=== PATIENT | male | born 1995 | race African-American/Black ===

== ENCOUNTER 2022-04-22 13:09 | Outpatient (CLI) | payer OTHER ==
[2022-04-22 13:48] VITALS: BP 118/78
--- NOTE | 2022-04-22 13:48 | SLEEP CARE CONSULTATION ---
Information from patient questionnaire entered by Blas Bailey. I have reviewed and concur with the information entered by Blas Bailey. This document represents the service I personally performed and the decisions made by me, Kathleen Saunders ARNP. History of Present Illness Service Date and Time: 04/22/2022 1309 Reason for Visit: New patient Chief Complaint: reports: Unrefreshed sleep, Snoring, Other (GRINDING TEETH) Date of Onset: SNORING 2 YEARS Usual bedtime: 1030 Time it takes to fall asleep: 30 MINUTES Snores at night: Yes Observed to quit breathing while asleep: No Sleeps alone due to snoring: No Number of times waking at night: 2 Reasons for waking at night: reports: Snoring, Other (DRINK WATER). denies: Choking, Gasping for air Toss, Turn, or Twitch while sleeping: Yes Recalls having dreams: No Usually gets out of bed at: 0445; weekends [id number] Feels refreshed in the morning: No Morning headache: No Sleepy or fatigued during the day: No Ever fallen asleep while driving: No Takes day naps: Yes (3-4 days a week, for 2 hrs) Dreams during day naps: No Prior sleep studies: No Additional HPI information: I had the pleasure of seeing RAMANDEEP GONSALVES today regarding the possibility of him having a sleep disorder. His current complaints are snoring and grinding teeth. He has been having TMJ issues and his surgeon wanted him to be evaluated because he is still having pain and may be grinding teeth. His dentist told him he did not have signs of bruxism. He has snored for a long time but denies any observed pauses in breathing. He does not feel refreshed in the morning from sleep but states he is not sleepy/fatigued during the day. He does take naps at least 3-4 days a week for 2 hours. His mother has sleep apnea and is on a machine. - Parasomnia Symptoms Ever been unable to move upon waking from sleep: No Walks in sleep: No Talks in sleep: No Ever acted out dreams in sleep: No Ever felt weak in the knees when startled or emotional: No Bothered by creepy, crawly, restless sensations in legs: Yes (random times during the day, not every day) Problems with memory or concentration: No Subjective Initial [place] Sleepiness Scale score: 7 (04/06/22) Past Medical History Past Medical History: reports: Other (TMJ, surgery December 2021) Social History The patient's occupation is a AM. Patient is Single and lives in . Have you smoked in the past 12 months: Yes (VAPE) Years of smokin Alcohol use: Yes Alcohol amount and frequency: 2-3 BEERS, WEEKENDS Caffeine use: No Family History Family history of sleep disordered breathing: Yes Family Hx Sleep Apnea: Mother: Snoring, Sleep apnea - Treated, Grandparent: Snoring Allergies and Home Medications Known drug allergies: No Drug allergies reviewed: Yes (NKDA) Home medication list reviewed: Yes Allergy and home medication list: Medications: Amitriptyline, prn Review of Systems Weight gain over past 5 years: 30 Cardiovascular: denies: high blood pressure Gastrointestinal: denies: heartburn Urinary: reports: frequency Neurological: denies: headaches, head trauma Psychiatric: denies: anxiety, depression Ear/Nose/Throat: reports: wisdom teeth removed. denies: tonsillectomy Musculoskeletal: reports: joint pain, neck pain, back pain Physical Exam Vital signs obtained and entered by: JHOANA PRATT Blood Pressure: 118/78 (LEFT ARM ) Cuff size: regular Heart Rate: 72 O2 Saturation: 98 Height: 5 ft 8 in Weight: 208 lb Body Mass Index: 31.6 BMI Classification: Obese Neck circumference: 17 (INCHES) Mouth and throat: narrow oropharynx Soft palate: long Hard palate: normal Uvula: normal Uvula visualization: 25% Mallampati Class III Tongue: normal in size Tonsils: 1+ Neck: normal w/o lymphadenopathy or thyromegaly Heart: regular rate and rhythm Lungs: clear bilaterally Impression and Plan 1. Suspected Obstructive Sleep Apnea-Hypopnea Syndrome, as suggested by a history of loud and irregular snoring, unrefreshed sleep and possible bruxism. Narrow oropharynx and obesity are common predisposing factors for obstructive sleep apnea-hypopnea syndrome. I recommend proceeding to polysomnography to confirm the diagnosis and to assess severity. If the patient has significant sleep disordered breathing, a manual CPAP titration study will also be performed to find the optimal treatment pressure. I informed the patient of what the sleep studies involve and after some discussion, obtained agreement to proceed. The pathophysiology of obstructive sleep apnea-hypopnea syndrome was discussed with the patient and health risks of cardiovascular and cerebrovascular disease if not treated. Risks of drowsy driving discussed in detail and patient advised to avoid long distance driving and to tack puller at the first sign of drowsiness. Patient agreed to plan. * Schedule polysomnography * Avoid long distance driving or driving when feeling sleepy. * Avoid alcohol, sedative and muscle relaxant around bedtime. * Attempt to lose weight. * Review instructions provided by trained office staff on how to prepare for the sleep study. * Return for follow-up after sleep study completed. Counseling Topics: Weight loss health impact Visit Type: In Office Time Spent with Patient (minutes): 25 Provider Statement: I spent 100% of the Face to Face Visit with the patient with greater than 50% spent counseling the patient and coordination of care.
== END 2022-04-22 13:10 | disposition home or self-care (01) ==
LOC: SC 13:09
PROVIDERS: ATTEND Nurse Practitioner Family
DX: R06.83 Snoring (principal); G47.63 Sleep related bruxism; G47.8 Other sleep disorders; E66.9 Obesity, unspecified; Z68.31 Body mass index [BMI] 31.0-31.9, adult; F17.290 Nicotine dependence, other tobacco product, uncomplicated
CPT/HCPCS: 99202; 99212

== ENCOUNTER 2022-05-10 14:14 | Outpatient (CLI) | payer OTHER | END 2022-05-10 14:15 | disposition home or self-care (01) | LOC: SC 14:14 | PROVIDERS: ATTEND Nurse Practitioner Family | DX: G47.33 Obstructive sleep apnea (adult) (pediatric) (principal); R09.02 Hypoxemia | CPT/HCPCS: 95806 ==

== ENCOUNTER 2022-06-01 12:27 | Outpatient (CLI) | payer OTHER ==
--- NOTE | 2022-06-01 13:19 | SLEEP CARE CONSULTATION ---
Information from patient questionnaire entered by Blela Rosa. I have reviewed and concur with the information entered by Bella Rosa. This document represents the service I personally performed and the decisions made by , Kathleen Saunders ARNP. History of Present Illness Service Date and Time: 06/01/2022 1227 Initial [place] Sleepiness Scale score: 7 (04/06/22) Current [place] Sleepiness Scale score: 5 (06/01/2022) Additional HPI information: RAMANDEEP GONSALVES returns for follow up and results of the recently performed home sleep study. I explained the pathophysiology behind obstructive sleep apnea. We then spent quite a bit of time discussing different treatment options. For mild obstructive sleep apnea, surgery and oral appliance are alternatives to nasal CPAP therapy but in moderate or severe cases, nasal CPAP is the most effective and reliable treatment. Because apnea is primarily in supine position, then positional management therapy could be effective. Methods discussed such as positioning with pillows to prevent supine sleep. I reviewed the impact of weight changes on sleep apnea and strongly recommended losing weight. Patient counseled not drink alcohol less than 4 hours before bedtime as it can increase snoring and apnea. Patient was cautioned about risks of drowsy driving until sleepiness symptoms resolve. Patient denies drowsy driving. Sleep Study - Results Type of Sleep Study: Home sleep study (COMPLETED 05/10/2022) Prior sleep studies: No Polysomnography/Home Sleep Study results: Physician Impression: The quality of the study is good. The length of the study is adequate (> 240 minutes). Please also see the tabulated and graphic data. 1. Obstructive Sleep Apnea-Hypopnea (ICD-10 G47.33), mild, with an AHI of 12.8/hr and gonzalo SaO2 of 85%. During the study, the patient had 99 apneas (98 obstructive, 0 central, 1 mixed) and 24 hypopneas. The patient did not sleep supine during this study (supine AHI was and non-supine, 12.81). 2. Hypoxemia (ICD-10 R09.02), mild, with the lowest oxygen saturation of 85 % and 1.8 minutes with SaO2 under 90%. Baseline oxygen saturation was normal (Average oxygen saturation was 95%). Allergies and Home Medications Drug allergies reviewed: Yes (NKDA) Home medication list reviewed: Yes (no changes) Review of Systems Review of systems same as previous: Yes (no changes) Physical Exam Vital signs obtained and entered by: BELLA Velasquez MA Blood Pressure: 112/64 (left arm) Cuff size: regular Heart Rate: 77 O2 Saturation: 95 Height: 5 ft 8 in Weight: 214 lb 3.2 oz Body Mass Index: 32.5 BMI Classification: Obese Impression and Plan 1. Obstructive Sleep Apnea-Hypopnea Syndrome, mild, with lowest oxygen saturation of 85%. Obviously this is the cause of the patients symptoms of unrefreshed sleep, and excessive daytime sleepiness. The patient chose an oral appliance to treat their apnea. A follow up will be made to see if appliance has reduced symptoms. If so, another polysomnography will be ordered with use of the oral appliance to check efficacy in reducing apnea. He requested a letter about using this device postop corneal surgery. I was able to accommodate this request. We will see him back in office after he has been using his oral device. * Oral appliance * Letter as requested * Attempt to lose weight. * Avoid alcohol consumption near bedtime. * Return one month after using oral appliance. I will assess response to therapy and compliance at that time. Counseling Topics: Weight loss health impact Visit Type: In Office Time Spent with Patient (minutes): 20 Provider Statement: I spent 100% of the Face to Face Visit with the patient with greater than 50% spent counseling the patient and coordination of care.
[2022-06-01 13:20] VITALS: BP 112/64
== END 2022-06-01 12:28 | disposition home or self-care (01) ==
LOC: SC 12:27
PROVIDERS: ATTEND Nurse Practitioner Family
DX: G47.33 Obstructive sleep apnea (adult) (pediatric) (principal); E66.9 Obesity, unspecified; Z68.32 Body mass index [BMI] 32.0-32.9, adult
CPT/HCPCS: 99212; 99213

== ENCOUNTER 2022-08-03 12:33 | Emergency (ER) | payer OTHER ==
[2022-08-03 14:06] LABS: BASOPHILS # (AUTO) 0.1 10^3/uL (0.0-0.1); BASOPHILS % (AUTO) 0.6 %; EOSINOPHILS # (AUTO) 0.1 10^3/uL (0.0-0.7); HCT - HEMATOCRIT 49.5 % (42.0-52.0); HGB - HEMOGLOBIN 16.5 g/dL (14.0-18.0); LYMPHOCYTES # (AUTO) 1.7 10^3/uL (1.5-3.5); LYMPHOCYTES % (AUTO) 21.7 %; MEAN CORPUSCULAR HEMOGLOBIN 27.5 pg (27.0-31.0); MEAN CORPUSCULAR HGB CONC 33.3 g/dL (32.0-36.0); MEAN CORPUSCULAR VOLUME 82.4 fL (80.0-94.0); MEAN PLATELET VOLUME 9.5 fL (7.4-11.4); MONOCYTES # (AUTO) 0.4 10^3/uL (0.0-1.0); MONOCYTES % (AUTO) 5.1 %; NEUTROPHILS # (AUTO) 5.5 10^3/uL (1.5-6.6); NEUTROPHILS % (AUTO) 71.5 %; PLT - PLATELET COUNT 382 10^3/uL (130-450); RED BLOOD COUNT 6.01 10^6/uL (4.70-6.10); RED CELL DISTRIBUTION WIDTH 12.7 % (12.0-15.0); WHITE BLOOD COUNT 7.7 x10^3/uL (4.8-10.8)
[2022-08-03 14:18] LABS: ALBUMIN 4.8 g/dL (3.2-5.5); ALBUMIN/GLOBULIN RATIO 1.4 (1.0-2.2); BILIRUBIN,TOTAL 0.7 mg/dL (0.2-1.0); CALCIUM 9.5 mg/dL (8.5-10.3); POTASSIUM 3.8 mmol/L (3.5-5.0); TOTAL PROTEIN 8.2 g/dL (6.7-8.2)
[2022-08-03] MEDS ORDERED: HYDROmorphone 1 MG/ML CARPUJECT IVP STA (17:18)
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
[2022-08-03] MEDS ORDERED: iohexoL-300 100 ML VIAL ONE (17:21)
[2022-08-03] MEDS ORDERED: iohexoL-300 100 ML VIAL IVP ONE (17:54)
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
[2022-08-03 18:33] VITALS: BP 124/97
== END 2022-08-03 18:33 | disposition home or self-care (01) ==
LOC: ED 12:33
DX: S30.1XXA Contusion of abdominal wall, initial encounter (principal); V03.90XA Pedestrian on foot injured in collision with car, pick-up truck or van, unspecified whether traffic or nontraffic accident, initial encounter; Y93.01 Activity, walking, marching and hiking; Y92.138 Other place on military base as the place of occurrence of the external cause
CPT/HCPCS: 36415; 74177; 80053; 83690; 85025; 96374; 99282; 99284; J1170; Q9967

== ENCOUNTER 2023-07-21 06:37 | Day surgery (SDC) | payer OTHER ==
[2023-07-21] MEDS ORDERED: PROPOFOL 200 MG/20 ML VIAL IVP ONE ×2 (06:54)
[2023-07-21] MEDS ORDERED: ROCURONIUM 50 MG/5 ML VIAL ONE (06:54)
[2023-07-21] MEDS ORDERED: MIDAZOLAM 2 MG/2 ML VIAL ONE (06:55)
[2023-07-21] MEDS ORDERED: fentaNYL 100 MCG/2 ML VIAL ONE (06:55)
[2023-07-21] MEDS ORDERED: ceFAZolin 2 GM VIAL ONE (07:21)
--- NOTE | 2023-07-21 07:32 | ANESTHESIA ---
Pre-Anesthesia VS, & Labs - Diagnosis Jaw pain - Procedure Coindylotomy of Left TMJ Vital Signs: Temp Pulse Resp BP Pulse Ox O2 Flow Rate 36.5 C 88 14 131/86 H 95 07/21/23 07:02 07/21/23 07:02 07/21/23 07:02 07/21/23 07:02 07/21/23 07:02 Height: 5 ft 7 in Weight (kg): 95.3 kg Body Mass Index: 32.9 BMI Classification: Obese - NPO Last Fluid Intake: h20, 0400 Home Medications and Allergies Amitriptyline HCl 50 mg PO DAILY 06/09/23 Fluticasone [Flonase] 1 sprays AMELIA DAILY PRN 06/09/23 Meloxicam 15 mg PO DAILY 06/09/23 Allergies/Adverse Reactions: Allergies Allergy/AdvReac Type Severity Reaction Status Date / Time No Known Drug Allergies Allergy Verified 07/21/23 07:01 Anes History & Medical History - Anesthetic History Anesthesia Complications: reports: No previous complications Family history of Anesthesia Complications: Denies Family history of Malignant Hyperthermia: Denies - Medical History Cardiovascular: reports: None Pulmonary: reports: Sleep apnea, Other (Vapes) Gastrointestinal: reports: None Urinary: reports: None Neuro: reports: None Musculoskeletal: reports: None Endocrine/Autoimmune: reports: None Blood Disorders: reports: None Skin: reports: None Psychosocial: reports: No issues indicated History of Cancer?: No Exam General: Alert Dental: TMJ (limited mouth opening d/t pain) Mouth Openin Fingerbreadth Neck Mobility: Normal Mallampati classification: III Thyromental Distance: 4-6 cm Respiratory: Lungs clear, Normal breath sounds, No respiratory distress, No accessory muscle use Cardiovascular: Regular rate Mental/Cognitive Status: Alert/Oriented X3 Cognitive Status: Within normal limits Plan Anesthesia Type: General (nasal intubation) Consent for Procedure(s) Verified and Reviewed: Yes Code Status: Attempt Resuscitation ASA classification: 2-Mild systemic disease (vapes) Is this case an emergency?: No
[2023-07-21] MEDS ORDERED: BACITRACIN ZINC OINT 1 PACKET TOP ONE (07:35)
[2023-07-21] MEDS ORDERED: LACTATED RINGERS 1,000 ML IV ONE ×3 (07:35→10:41)
[2023-07-21] MEDS ORDERED: NALOXONE 0.4 MG/ML VIAL IVP PRN (07:36)
[2023-07-21] MEDS ORDERED: METOCLOPRAMIDE 10 MG/2 ML VIAL IVP PRN (07:36)
[2023-07-21] MEDS ORDERED: HYDROmorphone 0.5 MG/0.5 ML SYRINGE IVP PRN (07:36)
[2023-07-21] MEDS ORDERED: ePHEDrine 50 MG/ML VIAL IVP PRN (07:36)
[2023-07-21] MEDS ORDERED: ATROPINE ABBOJECT 1 MG/10 ML SYRINGE IVP PRN (07:36)
[2023-07-21] MEDS ORDERED: MORPHINE 2 MG/ML CARPUJECT IVP PRN ×2 (07:36→11:02)
[2023-07-21] MEDS ORDERED: fentaNYL 100 MCG/2 ML VIAL IVP PRN (07:36)
[2023-07-21] MEDS ORDERED: ONDANSETRON 4 MG/2 ML VIAL IVP PRN ×2 (07:36→11:02)
[2023-07-21] MEDS ORDERED: ACETAMINOPHEN 1,000 MG/100 ML 1,000 MG/100 ML BAG IV ONE (07:54)
[2023-07-21] MEDS ORDERED: CHLORHEXIDINE GLUCONATE 15 ML UDC PO ONE (07:57)
[2023-07-21] MEDS ORDERED: LIDOCAINE 1%-EPI 1:100000 20 ML MDV ONE ×2 (07:57→09:14)
[2023-07-21] MEDS ORDERED: LACTATED RINGERS 1,000 ML IV SCH (08:00)
[2023-07-21] MEDS ORDERED: DEXMEDETOMIDINE 200 MCG/2 ML VIAL ONE (08:54)
[2023-07-21] MEDS ORDERED: DEXAMETHASONE 4 MG/ML VIAL ONE (08:54)
[2023-07-21] MEDS ORDERED: KETOROLAC 30 MG/ML VIAL ONE (08:54)
[2023-07-21] MEDS ORDERED: ONDANSETRON 4 MG/2 ML VIAL ONE (08:54)
[2023-07-21] MEDS ORDERED: LIDOCAINE 1%-EPI 1:100000 20 ML MDV SUBQ ONE ×2 (09:13)
[2023-07-21] MEDS ORDERED: BUPIVACAINE 0.5%-EPI 1:200000 PF 30 ML VIAL ONE (09:25)
[2023-07-21] MEDS ORDERED: SUGAMMADEX 200 MG/2 ML VIAL IVP ONE (09:29)
[2023-07-21] MEDS ORDERED: BUPIVACAINE 0.5%-EPI 1:200000 PF 30 ML VIAL SUBQ ONE ×2 (10:00)
--- NOTE | 2023-07-21 11:06 | OPERATIVE REPORT ---
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 Conservative therapy has failed to resolve his jaw pain. It was decided that a modified condylotomy of the left temporo mandibular joint was indicated. The risks, benefits, and alternatives of this plan were discussed with the patient including pain, swelling, bleeding, infection, nonunion, pseudoarthrosis, facial deformity, malocclusion, need for further surgeries or braces, damage to the teeth, permanent nerve injury with permanent paresthesia and/ Or anesthesia, and failure to resolve his jaw pain And worsening of the temporomandibular joint condition. Adequate time was given to answer all questions and informed consent was obtained. Findings: The patient was brought to the main operating room and placed in supine position on the operating table. General anesthesia was induced by the anesthesia team and the airway was secured with a 7.5 nasal ray tube via the right naris. The tube was secured to the nasal septum with a 2-0 silk suture. The patient pressure points were padded checked. The patient was prepped and draped in the standard sterile fashion for an intraoral surgical procedure. The eyes were protected with Tegaderms. A shoulder roll was placed. 1 Ray-Nazia was used as a throat pack. Chlorhexidine and a tooth brush were used to clean the teeth and the inside of the mouth. Local anesthesia was achieved with 1% lidocaine with 1-200,000 epinephrine x 8 cc. the Omni max tray was used to place an arch bar on the maxilla which was attached with two 7 mm screws and two 9 mm screws and another arch bar on the mandible which was attached with two 9 mm screws. A 45 degree distobuccal incision, a hockey-stick incision was made at site #17 with the distobuccal extension extending superiorly and up the ramus. The ramus was palpated to guide the direction of the incision. The incision was made with a 15 blade near tooth #18 and it was made with a Bovie elsewhere. Incision was made down to bone. Subperiosteal dissection was performed. The entire lateral aspect of the ascending ramus and angle of the mandible was exposed. Exposure was carried up to the condylar neck and the condylar notch. A series of freer elevators including a J. [place] were used to strip the masseter muscle off the posterior aspect of the mandible. Retractors were placed in the condylar notch. An oscillating saw was used with copious amounts of irrigation to make the osteotomy. The osteotomy was very easily completed. The proximal segment was freed and moved laterally. Additional muscle was removed from the proximal proximal segment which was medial pterygoid muscle. One third of the muscle fibers on the proximal segment were allowed to remain in place to hold the segment up. The entire surgical area was irrigated copiously. The wound was closed with 3 oh-0 Vicryl suture. The patient's mouth was rinsed and cleaned. The throat pack was removed. The oral pharynx was suctioned. The 24-gauge wires were then used to place intermaxillary fixation. The occlusion was stable and anatomic. This marked the end of the case. The patient's face was cleansed. The Tegaderms were removed from the eyes. The patient was emerged uneventfully and extubated without any complications. He was transferred to the PACU in stable condition Complications: none
[2023-07-21 12:05] VITALS: BP 151/93; O2SAT 98
--- NOTE | 2023-07-21 13:05 | ANESTHESIA POST OP EVALUATION ---
Anesthesia Post Eval - Post Anesthesia Eval Vitals: Last Vital Signs Temp 36.4 C L 07/21/23 12:00 Pulse 80 07/21/23 12:00 Resp 16 07/21/23 12:00 BP 151/93 H 07/21/23 12:00 Pulse Ox 98 07/21/23 12:00 O2 Flow Rate CV Function Including HR & BP: Stable Pain Control: Satisfactory Nausea & Vomiting: Negative Mental Status: Baseline Respiratory Status: Airway Patent Hydration Status: Satisfactory Anesthesia Complications: None
== END 2023-07-21 06:38 | disposition home or self-care (01) ==
LOC: SDS 06:37
PROVIDERS: ATTEND Dentist Oral and Maxillofacial Surgery
DX: M26.69 Other specified disorders of temporomandibular joint (principal); G47.30 Sleep apnea, unspecified; F17.290 Nicotine dependence, other tobacco product, uncomplicated; E66.9 Obesity, unspecified; Z68.32 Body mass index [BMI] 32.0-32.9, adult
CPT/HCPCS: 21299; A9270; C1713; J0131; J7120

== ENCOUNTER 2024-01-27 13:18 | Outpatient (CLI) | payer OTHER ==
--- NOTE | 2024-01-29 16:29 | MRI Report ---
PROCEDURE: Knee LT WO INDICATIONS: LEFT KNEE PAIN TECHNIQUE: Noncontrast sagittal PD fast spin echo and T2 fast spin echo with fat saturation, sagittal 3-D gradie nt sequence with fat saturation; coronal T1 spin echo and PD fast spin echo with fat saturation, and axial PD fast spin echo with fat saturation through the knee. COMPARISON: None. FINDINGS: Image quality: Excellent. Menisci: The medial and lateral menisci demonstrate normal morphology and internal signal. The meni scal root ligaments appear intact. Cruciate ligaments: The anterior and posterior cruciate ligaments appear intact. Medial structures: The medial collateral ligament appears intact. The semimembranosus tendon insert ions and meniscocapsular junction appear intact. Visualized portions of the pes anserinus tendons ap pear normal. No abnormal bursal fluid. Lateral structures: The lateral collateral ligament, long and short heads of the biceps femoris tend on appear intact. The popliteus tendon appears normal. Iliotibial band appears normal. Anterior structures: The quadriceps and patellar tendons appear intact. Patellar alignment is srinivas l. No femoral trochlear dysplasia or ventral trochlear prominence. No edema in the infrapatellar fa t pad. Bones and cartilage: No fractures. There is mild edema in the anterior aspect of the tibial plateau, compatible with mild bone contusions. The cartilage of the medial and lateral femorotibial compartme nts, as well as the patellofemoral compartment, appears normal in thickness. Joint space: There is physiologic knee joint fluid. No Camacho's cyst. Normal appearing synovial pli are incidentally noted. IMPRESSION: 1. Mild bone contusions in the anterior aspect of the lateral tibial plateau. 2. No meniscal, tendon or ligamentous injuries. Reviewed by: Abigail Glass MD on 01/29/2024 4:28 PM PDT Approved by: Abigail Glass MD on 01/29/2024 4:28 PM PDT Station ID: [id number]
== END 2024-01-27 13:19 | disposition home or self-care (01) ==
LOC: DI 13:18
PROVIDERS: ATTEND Student in an Organized Health Care Education/Training Program
DX: S80.12XA Contusion of left lower leg, initial encounter (principal)